=== PATIENT | female | born 1970 | race Caucasian/White ===

== ENCOUNTER → 2024-05-17 | Outpatient (CLI) | payer BC, SELFPAY ==
--- NOTE | 2024-05-17 17:02 | XR_ITS ---
Examination: Foot, right, 3 views Technique: AP, oblique, lateral views foot, 3 views Date and time of exam: May 17, 2024 [id number] hours INDICATIONS: Patient fell downstairs 2 days ago with lateral foot pain FINDINGS: Moderate osteopenia Fracture proximal fifth metatarsal at the base, with 2 mm separation at the fracture site IMPRESSION: Fracture proximal fifth metatarsal
== END | disposition home or self-care (01) ==
PROVIDERS: PCP Physician Assistant; Referring Provider Physician Assistant; Visit Provider Physician Assistant
DX: S92.351A Displaced fracture of fifth metatarsal bone, right foot, initial encounter for closed fracture (principal); W19.XXXA Unspecified fall, initial encounter
CPT/HCPCS: 73630